=== PATIENT | male | born 1960 | race Caucasian/White ===

== ENCOUNTER → 2020-12-21 | Outpatient (CLI) | payer OTHER | LOC: M.CT 12:02 | PROVIDERS: ATTEND Registered Nurse Diabetes Educator | DX: R19.5 Other fecal abnormalities (principal); N42.89 Other specified disorders of prostate; Z87.442 Personal history of urinary calculi ==

== ENCOUNTER → 2021-08-31 | Outpatient (CLI) | payer OTHER | LOC: M.LAB 09:47 | PROVIDERS: ATTEND Internal Medicine Gastroenterology | DX: Z01.812 Encounter for preprocedural laboratory examination (principal); Z20.822 Contact with and (suspected) exposure to COVID-19 ==